=== PATIENT | female | born 1985 | race Asian ===

== ENCOUNTER 2016-09-26 00:06 | Emergency (ER) | payer BC, OTHER ==
[~2016-09-26] VITALS: Wt 51.5 kg
[2016-09-26] MEDS ORDERED: SOD CHLORIDE 0.9% 1,000 ML IV STA (04:33)
[2016-09-26] MEDS ORDERED: morphine 4 MG/ML VIAL IV STA (04:40)
[2016-09-26] MEDS ORDERED: ONDANSETRON 4 MG INJ IV STA (04:40)
[2016-09-26 04:53] VITALS: TEMP 97.6
[2016-09-26 05:56] LABS: ALBUMIN 4.7 g/dl (3.3-4.9)
[2016-09-26 05:57] LABS: POTASSIUM 3.9 mmol/L (3.5-5.1)
[2016-09-26 05:59] LABS: BILIRUBIN,INDIRECT 0.5 mg/dl (0-1.1); BILIRUBIN,TOTAL 0.5 mg/dl (0.2-1.3); CREATININE 0.69 mg/dl (0.44-1.00)
[2016-09-26 06:00] LABS: ALBUMIN/GLOBULIN RATIO 1.27; CALCIUM 9.9 mg/dl (8.4-10.2); TOTAL PROTEIN 8.4 g/dl (6.1-8.1)
[2016-09-26 06:27] LABS: BASOPHILS % 0.2 % (0.0-2.0); EOSINOPHILS # 0.1 10^3/ul (0.0-0.5); EOSINOPHILS % 0.7 % (0.0-7.0); HEMATOCRIT 44.6 % (37.0-47.0); HEMOGLOBIN 15.2 g/dl (12.0-16.0); LYMPHOCYTES # 1.7 10^3/ul (0.8-2.9); LYMPHOCYTES % 21.3 % (15.0-51.0); MEAN CORPUSCULAR HEMOGLOBIN 30.7 pg (29.0-33.0); MEAN CORPUSCULAR VOLUME 90.3 fl (82.0-101.0); MEAN PLATELET VOLUME 8.6 fl (7.4-10.4); MONOCYTE # 0.4 10^3/ul (0.3-0.9); MONOCYTES % 4.7 % (0.0-11.0); NEUTROPHIL # 5.7 10^3/ul (1.6-7.5); NEUTROPHILS % 73.1 % (39.0-77.0); PLATELET COUNT 309 10^3/UL (140-440); RED BLOOD COUNT 4.94 10^6/ul (4.20-5.40); RED CELL DISTRIBUTION WIDTH 12.7 % (11.5-14.5); UNCORRECTED WBC 7.8 10^3/ul (4.8-10.8); WHITE BLOOD COUNT 7.8 10^3/ul (4.8-10.8)
[2016-09-26 06:40] LABS: CONDITION 1
--- NOTE | 2016-09-26 06:40 | RADRPT ---
PROCEDURE: CT Abdomen and Pelvis without contrast. CLINICAL INDICATION: Abdominal pain. TECHNIQUE: Routine tomographic images of the abdomen and pelvis were obtained from the domes of th e diaphragm to the symphysis pubis. The patient was scanned withoutoral or intravenous contrast. C oronal and sagittal reformatted images were obtained from the axial source images. Images were revie wed on a high-resolution PACS workstation. The total exam CTDI equals 4.82 mGy and the total exam DL P equals 255.32 mGy-cm. One or more of the following dose reduction techniques were used: Automate d exposure control, adjustment of the mA and / or kV according to patient size, or use of iterative reconstruction technique. COMPARISON: None. FINDINGS: The visualized portions of the lung bases are clear. Evaluation of the intra-abdominal solid org ans is limited on this noncontrast examination. The liver appears normal in size. There is no intr a or extrahepatic biliary dilatation. The gallbladder is unremarkable by CT criteria. The spleen, pancreas, and adrenal glands are unremarkable. The kidneys are symmetric in size. No renal, ureteral, or bladder calculi are identified. No perine phric inflammatory changes are identified. The urinary bladder is grossly unremarkable. The bowel demonstrates normal course and caliber. There is moderate volume stool throughout the colo n. There is no evidence of bowel obstruction. The appendix is normal in appearance. No intraperit seymour free fluid, free air or abscess is identified. The uterus and adnexa are unremarkable. The ao rta is normal in caliber. No retroperitoneal, mesenteric, or inguinal lymphadenopathy is identified . The osseous structures are unremarkable. No significant subcutaneous soft tissue abnormalities are seen. IMPRESSION: 1. Limited evaluation secondary to absence of contrast and paucity of intra-abdominal fat. No acute intra-abdominal abnormality is appreciated. 2. Moderate volume stool throughout the colon. Clinical correlation for constipation recommended. RPTAT: HH .Sera Pascual MD, Date Time Electronically viewed and signed by .Sera Pascual MD, MD on 09/26/2016 06:39 .G/
[2016-09-26 06:54] VITALS: BP 105/75; PULSE 70; RESP 20
--- NOTE | 2016-09-26 07:12 | RADRPT ---
PROCEDURE: US Abdomen (Right upper quadrant) CLINICAL INDICATION: Abdominal pain. TECHNIQUE: Multiple real-time longitudinal and transverse images were acquired of the patient's ri t upper quadrant utilizing a curved array transducer. COMPARISON: None. FINDINGS: Liver is normal in size and echogenicity. No focal liver mass. Portal vein demonstrates hepatopetal flow. Gallbladder is normal. There are no gallstones. There is no gallbladder wall thickening or pericho lecystic fluid. No intra- or extrahepatic biliary dilation. Pancreas is partially visualized and grossly unremarkable. Right kidney demonstrates no hydronephrosis or nephrolithiasis. No ascites. Proximal aorta and IVC are unremarkable. MEASUREMENTS: Liver: 13.8 cm Common Duct: 0.2 cm Right Kidney: 9.9 cm IMPRESSION: 1. No sonographic evidence of an acute or significant abnormality in the right upper quadrant of th e abdomen. RPTAT: EE .Farhad Beck MD, Date Time Electronically viewed and signed by .Farhad Beck MD, MD on 09/26/2016 07:16 .C/
[2016-09-26 07:34] LABS: ADD UMIC NO; URINE BILIRUBIN (Dip) NEGATIVE (NEGATIVE); URINE BLOOD (Dip) NEGATIVE (NEGATIVE); URINE COLOR LT. YELLOW (YELLOW); URINE GLUCOSE (Dip) NEGATIVE (NEGATIVE); URINE KETONES (Dip) 40 (NEGATIVE); URINE LEUKOCYTE ESTERASE (Dip) NEGATIVE (NEGATIVE); URINE NITRITE (Dip) NEGATIVE (NEGATIVE); URINE TOTAL PROTEIN (Dip) NEGATIVE (NEGATIVE); URINE UROBILINOGEN (Dip) 0.2 E.U./dL (0.1-1.0)
[2016-09-26] MEDS ORDERED: NORG1TAB65 PO (07:35)
[2016-09-26] MEDS ORDERED: ATOR10TA65 PO (07:35)
--- NOTE | 2016-09-26 07:50 | RADRPT ---
PROCEDURE: US Pelvis and color flow Doppler of the adnexa. CLINICAL INDICATION: Right lower quadrant pain TECHNIQUE: Multiple sagittal, oblique and transverse real time images were obtained of the lower abd omen and pelvis using a transabdominal as well a transvaginal approach. Color-flow Doppler was perfo rmed of the adnexa. COMPARISON: Abdominal ultrasound and CT scan of the pelvis 09/26/2016. FINDINGS: The uterus is normal limits in size measuring 6.18 x 3.38 x 4.07 cm. The myometrium is unremarkable without focal lesions. The endometrial canal is normal in size configuration with a maximal AP willa meter of 0.36 cm. The ovaries are normal in size with the right measuring 1.6 x 0.81 x 1.19 cm and the left measuring 1.98 x 0.92 by 1.46 cm. There are no ovarian masses. There is normal flow to tc th ovaries without ultrasound evidence of ovarian torsion. There are no pelvic masses. There is tr niall free fluid in the pelvis. IMPRESSION: 1. Normal size uterus and ovaries without focal lesions. 2. Normal ultrasonic evidence of ovarian torsion. 3. Trace fluid within the pelvis. There are no pelvic masses. RPTAT:AAJJ Physician Katina Date Time Electronically viewed and signed by Physician Katina on 09/26/2016 07:50 BM/
--- NOTE | 2016-09-26 09:27 | ERD ---
ER Documentation Chief Complaint Date/Time DATE: 09/26/16 TIME: 09:25 Chief Complaint ABD PAIN SINCE 5PM. DENIES N/V/D HPI 31-year-old female presents to the emergency department complaining of abdominal pain. Patient states that beginning approximately 5:00 last night she had the acute onset of right-sided abdominal pain. It was localized mostly in the right upper and right lower quadrant of the abdomen. She reports nausea but no vomiting or diarrhea. She reports no urinary symptoms. The pain came and went and was colicky in nature and is now resolved upon my arrival in the emergency department. Patient reports no fevers or chills at this time. She reports no vaginal bleeding or discharge. Currently she reports the pain is mild to moderate and completely resolved when it was on at its onset it was severe. ROS All systems reviewed and are negative except as per history of present illness. Medications Home Meds Reported Medications Atorvastatin Calcium (Atorvastatin Calcium) 10 Mg Tablet, 10 MG PO QHS, #30 TAB 09/26/16 Norgestimate-Ethinyl Estradiol (Norgestimate-Ethinyl Estradiol) 0.035-0.18 Mg Tablet, 1 TAB PO DAILY, TAB 09/26/16 Allergies Allergies: Coded Allergies: No Known Allergy (Unverified , 09/26/16) PMhx/Soc History of Surgery: Yes (OPEN HEART SX 2 YRS OLD, COLPOSCOPY) Anesthesia Reaction: No Hx Neurological Disorder: No Hx Respiratory Disorders: No Hx Cardiac Disorders: Yes (CONGENITAL CARDIAC MURMUR) Hx Psychiatric Problems: No Hx Miscellaneous Medical Probl: Yes (PRE DIABETES, HPV) Hx Alcohol Use: Yes Hx Substance Use: No Hx Tobacco Use: Yes Smoking Status: Former smoker FmHx Noncontributory for chief complaint Physical Exam Vitals Vital Signs Date Time Temp Pulse Resp B/P Pulse Ox O2 Delivery O2 Flow Rate FiO2 09/26/16 06:54 70 20 105/75 100 Room Air 09/26/16 04:53 97.6 64 20 109/72 100 Room Air 09/26/16 00:10 97.9 65 20 99/66 99 Physical Exam GENERAL: The patient is well developed and appropriate for usual state of health in no apparent distress HEENT: Pupils equal, round, and reactive to light. EOMI. There is no scleral icterus. NECK: C-spine is soft and supple, there is no meningismus. There is no cervical lymphadenopathy. LUNGS: Clear to auscultation bilaterally. There are no rales, wheezes or rhonchi. HEART: Regular rate and rhythm, no murmurs, clicks, rubs or gallops. ABDOMEN: Soft, non-tender, non-distended. There are bowel sounds in all four quadrants. No rebound or guarding. EXTREMITIES: There is no peripheral cyanosis or edema. No focal swelling or erythema. NEURO: The patient moves all four extremities with 5/5 strength. Cranial nerves II - XII are intact. Normal gait. Alert and oriented SKIN: There is no apparent rash or petechiae. HEME/LYMPHATIC: There is no evidence of excessive bruising or lymphedema. PSYCHIATRIC: The patient does not appear anxious or depressed. Result Diagram: 09/26/16 0500 09/26/16 0433 Results 24 hrs Laboratory Tests Test 09/26/16 04:33 09/26/16 04:35 09/26/16 05:00 Alanine Aminotransferase (ALT/SGPT) 24IU/L Albumin 4.7g/dl Albumin/Globulin Ratio 1.27 Alkaline Phosphatase 52IU/L Anion Gap 21 Aspartate Amino Transf (AST/SGOT) 24IU/L Blood Urea Nitrogen 19mg/dl Calcium Level 9.9mg/dl Carbon Dioxide Level 24mmol/L Chloride Level 103mmol/L Creatinine 0.69mg/dl Direct Bilirubin 0.00mg/dl Globulin 3.70g/dl Glucose Level 88mg/dl Indirect Bilirubin 0.5mg/dl Lipase 172U/L Potassium Level 3.9mmol/L Sodium Level 144mmol/L Total Bilirubin 0.5mg/dl Total Protein 8.4g/dl Urine Bilirubin NEGATIVE Urine Clarity CLEAR Urine Color LT. YELLOW Urine Glucose NEGATIVE% Urine Hemoglobin NEGATIVE Urine Ketones 40 Urine Leukocyte Esterase NEGATIVE Urine Nitrite NEGATIVE Urine Specific [place] >=1.030 Urine Total Protein NEGATIVE Urine Urobilinogen 0.2 E.U./dL Urine pH 5.5 Basophils # 0.010^3/ul Basophils % 0.2% Eosinophils # 0.110^3/ul Eosinophils % 0.7% Hematocrit 44.6% Hemoglobin 15.2g/dl Lymphocytes # 1.710^3/ul Lymphocytes % 21.3% Mean Corpuscular Hemoglobin 30.7pg Mean Corpuscular Hemoglobin Concent 34.0g/dl Mean Corpuscular Volume 90.3fl Mean Platelet Volume 8.6fl Monocytes # 0.410^3/ul Monocytes % 4.7% Neutrophils # 5.710^3/ul Neutrophils % 73.1% Nucleated Red Blood Cells # 0.010^3/ul Nucleated Red Blood Cells % 0.0/100WBC Platelet Count 54068^3/UL Red Blood Count 4.9410^6/ul Red Cell Distribution Width 12.7% White Blood Count 7.810^3/ul Current Medications Medications (Trade) Dose Ordered Sig/Manda Route PRN Reason Start Time Stop Time Status Last Admin Dose Admin Sodium Chloride (NS) 1,000 ml @ 1,000 mls/hr Q1H STAT IV 09/26/16 04:33 09/26/16 05:32 DC 09/26/16 04:58 Morphine Sulfate (morphine) 4 mg ONCE STAT IV 09/26/16 04:40 09/26/16 04:45 DC 09/26/16 04:57 Ondansetron HCl (Zofran Inj) 4 mg ONCE STAT IV 09/26/16 04:40 09/26/16 04:45 DC 09/26/16 04:57 Procedures/MDM Patient was taken to a room, seen and evaluated. Comfort measures were initiated. Diagnostic tests were ordered and reviewed. RADIOLOGY: reviewed with the radiologist REEVALUATION: Patient remained comfortable in the emergency department with no abdominal tenderness on repeat examinations. MEDICAL DECISION MAKING: Patient presents with abdominal pain of uncertain etiology. Differential diagnosis considered includes appendicitis, diverticulitis, cholecystitis and other intra-abdominal medical and surgical concerns. I have reviewed the patient's lab studies and imaging as well as multiple examinations of the abdomen. At this time, patient shows no evidence of cholecystitis, appendicitis or other high-risk concerns. Her diagnostic lab tests and imaging studies appear to be benign. She is comfortable at this time and appears to be appropriate for outpatient care. Departure Diagnosis: Primary Impression: Abdominal pain Condition: Stable Patient Instructions: Abdominal Pain Additional Instructions: See your doctor for follow-up as discussed. Take a copy of your test results, if appropriate, to this follow-up visit. See your doctor or return here if your symptoms do not improve as expected. At any time, please return to the emergency department for any change or worsening in her symptoms. ORALIA GONZALES Sep 26, 2016 09:27
== END 2016-09-26 09:58 | disposition home or self-care (01) ==
LOC: E/R 00:06
DX: R10.11 Right upper quadrant pain (principal); R11.0 Nausea; Z87.891 Personal history of nicotine dependence
CPT/HCPCS: 74176; 76705; 76830; 76856; 80053; 81003; 83690; 85025; J2270; J2405; J7030; 36415; 96374; 96375